=== PATIENT | female | born 1970 | race Caucasian/White ===

== ENCOUNTER 2017-08-09 06:20 | Day surgery (SDC) | payer BC ==
[~2017-08-09] VITALS: Ht 165.1 cm; Wt 64.0 kg
[2017-08-09] MEDS ORDERED: PROPOFOL 200MG/ 20ML VIAL (DIPRIVAN) IV ONE (09:00)
[2017-08-09] MEDS ORDERED: ONDANSETRON HCL 4 MG/2 ML VIAL IVP ONE (09:00)
[2017-08-09] MEDS ORDERED: SEVOFLURANE 15 MIN GAS INH ONE (09:00)
[2017-08-09] MEDS ORDERED: KETOROLAC TROMETHAMINE 30 MG VIAL IVP ONE (09:00)
[2017-08-09] MEDS ORDERED: fentaNYL CITRATE/PF 100 MCG/2 ML AMP IVP ONE (09:00)
[2017-08-09] MEDS ORDERED: MIDAZOLAM HCL 5 MG/5 ML VIAL IVP ONE (09:00)
[2017-08-09] MEDS ORDERED: MIVACURIUM CHLORIDE 20 MG/10 ML VIAL (MIVACRON) INJ ONE (09:00)
[2017-08-09] MEDS ORDERED: NS 1000 ML BAG IV ONE (09:00)
[2017-08-09] MEDS ORDERED: LR 1,000 ML IV SCH (09:04)
[2017-08-09] MEDS ORDERED: MORPHINE 4 MG/ML INJ. SYRINGE IVP PRN ×3 (09:15)
[2017-08-09] MEDS ORDERED: METOCLOPRAMIDE HCL 10 MG/2 ML VIAL IVP PRN (09:15)
[2017-08-09] MEDS ORDERED: OXYCODONE/ACETAMINOPHEN 5-325 TABLET PO PRN ×2 (09:45)
[2017-08-09] MEDS ORDERED: IBUPROFEN 800 MG TABLET PO PRN (09:45)
[2017-08-09] MEDS ORDERED: ONDANSETRON HCL 4 MG/2 ML VIAL IVP PRN (09:45)
[2017-08-09 10:52] VITALS: BP_SYST 136
[2017-08-09] MEDS ORDERED: OXYCODONE/ACETAMINOPHEN 5-325 TABLET ONE (10:54)
== END 2017-08-09 12:10 | disposition home or self-care (01) ==
LOC: SMU 06:20 → SDS 06:20
PROVIDERS: ATTEND Obstetrics & Gynecology
DX: N84.0 Polyp of corpus uteri (principal); M54.12 Radiculopathy, cervical region; Z98.890 Other specified postprocedural states; Z80.3 Family history of malignant neoplasm of breast; Z88.0 Allergy status to penicillin
CPT/HCPCS: 58563; 88305; J1885; J2250; J2405; J2704; J3010; J7030; J7120